=== PATIENT | female | born 1940 | race Caucasian/White ===

== ENCOUNTER 2019-06-30 19:23 | Observation (INO) | payer MEDICAID, MEDICARE, SELFPAY ==
[~2019-06-30] VITALS: Ht 157.5 cm; Wt 61.2 kg
--- NOTE | 2019-06-30 19:31 | NUR ---
TINY ALS TO BED 10.
[2019-06-30 19:32] VITALS: BP 123/72
--- NOTE | 2019-06-30 19:47 | NUR ---
79 Y/F BIBA ALS FROM [facility] FOR C/O STERNAL NONRADIATING CHEST SHARP PAIN 7/10. PT C/O COUGH AND SOB. LUNGS CLEAR. S1S2 PRESENT. RR EVEN, BREATHING SLIGHTLY LABORED. VSS. PUSES 2+ LT EYE BLOOD FILLED X 2 DAY. PT REPORTS 10/10 PAIN. DENIES BLURRED VISION. -LOC, -N/V/D NEGATIVE FOR COVID SCREENING. PMHX: DEMENTIA, COPD, PARKINSONS RX: IN PT CHART ALLX: NKA
--- NOTE | 2019-06-30 20:11 | NUR ---
EKG PERFORMED AT BEDSIDE
--- NOTE | 2019-06-30 20:28 | NUR ---
ERMD BEDSIDE EVALUATING PT
--- NOTE | 2019-06-30 20:29 | NUR ---
DR. CAMPOS AT BEDSIDE.
--- NOTE | 2019-06-30 21:01 | NUR ---
FLU, RSV AND COVID SWAB COLLECTED. PT TOLERATED WELL. SPECIMENS GIVEN TO LINE CONSTRUCTION SUPERVISOR IN ER TO BE PROCESSED.
[2019-06-30 21:06] LABS: BASOPHILS # (AUTO) 0.1 K/uL (0.00-0.22); EOSINOPHILS # (AUTO) 0.2 K/uL (0-0.4); EOSINOPHILS % (AUTO) 4.3 % (0.0-4.0); HEMATOCRIT 35.1 % (36-48); HEMOGLOBIN 11.4 g/dL (12.0-16.0); LYMPHOCYTES # (AUTO) 1.2 K/uL (2.5-16.5); MEAN CORPUSCULAR HEMOGLOBIN 27 pg (27-31); MEAN CORPUSCULAR HGB CONC 33 g/dL (33-37); MEAN CORPUSCULAR VOLUME 81.7 fL (80-94); MONOCYTES # (AUTO) 0.4 K/uL (0.8-1.0); MONOCYTES % (AUTO) 7.9 % (1.7-9.3); NEUTROPHILS # (AUTO) 3.7 K/uL (1.8-7.7); NEUTROPHILS % (AUTO) 64.8 % (42.2-75.2); PLATELET COUNT (AUTO) 260 K/uL (140-450); RED CELL DISTRIBUTION WIDTH 17.2 % (11.6-13.7); WHITE BLOOD COUNT (AUTO) 5.6 K/uL (4.8-10.8)
--- NOTE | 2019-06-30 21:10 | NUR ---
RT AT BEDSIDE.
[2019-06-30 21:21] LABS: APPEARANCE,URINE CLEAR (CLEAR); BILIRUBIN,URINE NEGATIVE (NEGATIVE); BLOOD, URINE NEGATIVE (NEGATIVE); COLOR,URINE YELLOW (YELLOW); LEUKOCYTE ESTERASE ,URINE NEGATIVE (NEGATIVE); NITRITE, URINE NEGATIVE (NEGATIVE); PH,URINE 6.5 (5.0-9.0); UGLUCOSE NEGATIVE (NEGATIVE)
[2019-06-30 21:21] LABS: FIBRINOGEN 238 mg/dL (200-400); PROTHROMBIN TIME 11.6 secs (10.8-13.4)
[2019-06-30 21:26] LABS: C-REACTIVE PROTEIN QUANT 0.2 mg/dL (0.0-0.9)
[2019-06-30 21:34] LABS: LACTATE DEHYDROGENASE 141 U/L (81-234)
[2019-06-30 21:38] LABS: D-DIMER < 100 ng/ml (0-400)
[2019-06-30 21:43] LABS: RSV NEGATIVE (NEGATIVE)
[2019-06-30 21:46] LABS: ANION GAP 7.7 (8-16); CARBON DIOXIDE 32.4 mmol/L (21-32); CHLORIDE 110 mmol/L (98-107); GLUCOSE 120 mg/dL (74-106); POTASSIUM 4.1 mmol/L (3.5-5.1); SODIUM SERUM 146 mmol/L (136-145)
[2019-06-30 21:47] LABS: ALBUMIN 3.1 g/dL (3.4-5.0); ASPARTATE AMINOTRANSFERASE 12 U/L (15-37); CREATININE 1.2 mg/dL (0.6-1.3); TOTAL BILIRUBIN 0.3 mg/dL (0.0-1.0); UREA NITROGEN, BLOOD 25 mg/dL (7-18)
--- NOTE | 2019-06-30 21:55 | NUR ---
VSS, ALL NEEDS MET AT THIS TIME, WILL CONTINUE TO MONITOR.
--- NOTE | 2019-06-30 21:57 | NUR ---
SPOKE WITH DAUGHTER-- UPDATED ON PLAN OF CARE. ALL QUESTIONS ANSWERED.
[2019-06-30] MEDS ORDERED: POTA8TER12 PO (23:10)
[2019-06-30] MEDS ORDERED: RISP0.5T19 PO (23:10)
[2019-06-30] MEDS ORDERED: GABA300C PO (23:10)
[2019-06-30] MEDS ORDERED: FLUT1DSK4 IH (23:10)
[2019-06-30] MEDS ORDERED: MAGN241.1 PO (23:10)
[2019-06-30] MEDS ORDERED: OMEP20TC10 PO (23:10)
[2019-06-30] MEDS ORDERED: FURO-572 PO (23:10)
[2019-06-30] MEDS ORDERED: ERGO500028 PO (23:10)
[2019-06-30] MEDS ORDERED: ROPI3TAB PO (23:10)
[2019-06-30] MEDS ORDERED: RASA0.5T2 PO (23:10)
[2019-06-30] MEDS ORDERED: ONDANSETRON 4 MG/2 ML VIAL IM/IVP PRN (23:15)
[2019-06-30] MEDS ORDERED: DOCUSATE SODIUM 100 MG GELCAP PO PRN (23:15)
[2019-06-30] MEDS ORDERED: ACETAMINOPHEN 325 MG TAB PO PRN (23:15)
[2019-06-30] MEDS ORDERED: HYDROcodone/APAP 7.5/325 MG 1 TAB PO PRN (23:15)
[2019-06-30] MEDS: NACL 0.9% 1,000 ML IV SCH (23:45)
--- NOTE | 2019-06-30 23:45 | NUR ---
RECEIVED BEDSIDE REPORT FROM ED RN BOB, FOR PT'S CONTINUITY OF CARE. 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 EXPLAINED TO PT THE BELLMAN ROUTINE, ORIENTED PT TO THE HOSPITAL SURROUNDINGS, ENCOURAGED THE USE OF CALL LIGHT, PT NODDED IN UNDERSTANDING. SAFETY MEASURES IN PLACE, ISOLATION PRECAUTION FOR R/O COVID IN PLACE, AND CALL LIGHT IS WITHIN REACH. WILL MONITOR PT THROUGHOUT SHIFT.
--- NOTE | 2019-06-30 23:45 | NUR ---
Patient will be admitted to care of DR. SHIELDS. Admited to TELE. Will go to room 115. Belongings list completed. Report to TUNDE SHRESTHA.
[2019-07-01 00:04] VITALS: BP 142/80
[2019-07-01 00:35] LABS: FREE T4 (FREE THYROXINE) 0.95 ng/dL (0.76-1.46); PHOSPHORUS 3.7 mg/dL (2.5-4.9); THYROID STIMULATING HORMONE 2.43 uIU/mL (0.34-3.74)
[2019-07-01] MEDS ORDERED: APIX5TAB4 PO (00:43)
[2019-07-01 00:50] LABS: CHOL/HDL RATIO 4.8 (1-4.5)
[2019-07-01] MEDS ORDERED: ALBUTEROL SULFATE/IPRATROPIU 3 ML SOL IH PRN (01:10)
[2019-07-01] MEDS ORDERED: ALBUTEROL HFA MDI 90 MCG/ACTUATION 8 GM INH PRN ×2 (01:15→15:05)
--- NOTE | 2019-07-01 02:15 | NUR ---
PT GOT OUT OF BED, REORIENTED PT TO SURROUNDINGS, PT MADE COMFORTABLE. PT DENIED ANYTHING NEEDED AT THIS TIME. SAFETY MEASURES IN PLACE AND CALL LIGHT IS WITHIN REACH.
[2019-07-01 02:31] LABS: BARBITURATE, URINE NEGATIVE ng/ml (NEG <=200); BENZODIAZEPINE, URINE NEGATIVE ng/mL (NEG <=200); CANNABINOID, URINE NEGATIVE ng/mL (NEG <=50); COCAINE, URINE NEGATIVE ng/mL (NEG <=300); OPIATE, URINE NEGATIVE ng/mL (NEG <=2000); PHENCYCLIDINE SCREEN,URINE NEGATIVE ng/mL (NEG <=25)
[2019-07-01] MEDS ORDERED: MECLIZINE 25 MG TAB PO PRN (02:35)
[2019-07-01 04:00] VITALS: BP 145/79
--- NOTE | 2019-07-01 04:00 | NUR ---
VS CHECKED AND CHARTED. PT DENIES ANY PAIN OR DISCOMFORT. ASKED COLLEAGUE WHO SPEAKS BOLIVIAN TO ASK PT IF THERE ARE ANY OTHER CONCERNS, PT DENIES. CONTINUED TO REORIENT PT TO THE HOSPITAL SURROUNDINGS AND REORIENT TO PLACE AND TIME. PT VERBALIZED UNDERSTANDING. WILL CONTINUE TO MONITOR PT.
[2019-07-01] MEDS: GABAPENTIN 300 MG CAP PO SCH ×3 (05:21→21:13)
--- NOTE | 2019-07-01 05:21 | NUR ---
ADMINISTERED SCHEDULED MEDICATION ORDERED. PT TOLERATED IT WELL. PT TEACHING GIVEN, PT NODDED, DENIES ANY PAIN. WILL CONTINUE TO MONITOR PT.
--- NOTE | 2019-07-01 06:20 | NUR ---
PT LYING DOWN ASLEEP WITH NO SIGNS OF DISTRESS OR DISCOMFORT. SAFETY MEASURES IN PLACE AND CALL LIGHT IS WITHIN REACH. WILL ENDORSE PT TO AM SHIFT RN FOR PT'S CONTINUITY OF CARE.
--- NOTE | 2019-07-01 07:36 | NUR ---
RECEIVED BEDSIDE REPORT FROM BUMBOATER NURSE FOR CONTINUITY OF CARE. PT IS A&OX1, UZBEK SPEAKING. RESPIRATIONS ARE EVEN AND UNLABORED, BREATHING TO RA. RAC 20G IV IS PATENT AND INTACT, RUNNING PER ORDERS. REVIEWED POC WITH PT, PT UNABLE TO COMPREHEND. CARDIAC DIET. INCONTINENT. ON OBSERVATION. TELE MONITOR ATTACHED. FALL PRECAUTIONS IN PLACE. DROPLET PRECAUTIONS IN PLACE; R/O COVID. SAFETY MEASURES IN PLACE; CALL LIGHT WITHIN REACH, BED IN LOW POSITION. NO DISTRESS NOTED. WILL CONTINUE TO MONITOR.
[2019-07-01 08:00] VITALS: BP 154/99
--- NOTE | 2019-07-01 08:19 | NUR ---
RECEIVED BEDSIDE REPORT FROM TOUR AGENT NURSE FOR CONTINUITY OF CARE. PT IS A&OX1, SPAIRESPIRATIONS ARE EVEN AND UNLABORED, BREATHING TO RA. RAC 20G IV IS PATENT AND INTACT, RUNNING TKO. REVIEWED POC WITH PT. CCHO 60G DIET. TELE MONITOR ATTACHED. FALL PRECAUTIONS IN PLACE; BED ALARM ACTIVATED, SIGN POSTED. SAFETY MEASURES IN PLACE; CALL LIGHT WITHIN REACH, BED IN LOW POSITION. NO DISTRESS NOTED. WILL CONTINUE TO MONITOR. Addendum: 07/01/19 at 0826 by Lydia Crook RN *INCOMPLETE ENTRY* *TIME CORRECTION* 1160 *PT IS A&OX1, QATARI SPEAKING. RT AC 20G IV IS PATENT AND INTACT, RUNNING PER ORDERS. CARDIAC DIET. DROPLET PRECAUTIONS IN PLACE; R/O COVID. INCONTINENT.
[2019-07-01] MEDS: PANTOPRAZOLE 40 MG TABEC PO SCH (09:27)
--- NOTE | 2019-07-01 09:27 | NUR ---
SCHEDULED MEDICATIONS GIVEN. PT TOLERATED PO MEDS WELL. PORT STEWARD IS AT BEDSIDE CLEANING PT. NO ACUTE DISTRESS NOTED. SAFETY MEASURES IN PLACE. WILL CONTINUE TO MONITOR.
[2019-07-01] MEDS: risperiDONE 1 MG TAB PO SCH ×2 (09:35→21:14)
[2019-07-01] MEDS: FUROSEMIDE 20 MG TAB PO SCH (09:36)
[2019-07-01] MEDS: rOPINIRole 1 MG TAB PO SCH ×2 (09:37→21:14)
[2019-07-01] MEDS: APIXABAN 2.5 MG TAB PO SCH ×2 (09:41→21:39)
[2019-07-01] MEDS: NACL 0.9% 1,000 ML IV SCH (09:59)
[2019-07-01] MEDS ORDERED: DIPHENHYDRAMINE HCL/ZINC ACET 28 GM TUBE TP PRN (10:25)
[2019-07-01 12:00] VITALS: BP 149/86
--- NOTE | 2019-07-01 12:01 | NUR ---
PT ATTEMPTED TO GET OUT OF BED, PT ASSISTED BACK TO BED, WITH EXPLANATION PROVIDED ABOUT REMAINING IN BED FOR HER SAFETY.
--- NOTE | 2019-07-01 12:03 | NUR ---
SPOKE WITH PT'S DAUGHTER, DUANE, AND UPDATED HER ON PT'S STATUS. PT IS LYING IN IN BED, APPEARS CONFUSED. PT STATED THAT SHE SEES HER NIECE OUTSIDE THE WINDOW IN THE PARKING LOT, BUT THERE WAS NO ONE THERE. NO ACUTE DISTRESS NOTED. WILL CONTINUE TO MONITOR.
--- NOTE | 2019-07-01 14:22 | NUR ---
PT ATTEMPTED TO GET OUT OF BED, PT ASSISTED BACK TO BED. SCHEDULED PO MED GIVEN. WILL CONTINUE TO MONITOR.
[2019-07-01] MEDS ORDERED: risperiDONE 1 MG TAB PO SCH (15:02)
[2019-07-01] MEDS ORDERED: AZITHROMYCIN 250 MG TAB PO SCH (15:24)
[2019-07-01 16:00] VITALS: BP 159/89
--- NOTE | 2019-07-01 16:01 | NUR ---
PT REMOVED IV. WILL ATTEMPT IV INSERTION.
--- NOTE | 2019-07-01 16:09 | NUR ---
Attempted to reapply heart monitor, but pt angrily pushes staff's hands away when approached. Explained importance of heart monitor, redirected behavior with conversation, and provided reassurance. Pt confused, stating she is not sick. Continue to refuse to reapply the heart monitor. Dr. Fernandez notified.
[2019-07-01] MEDS: ASCORBIC ACID 500 MG TAB PO SCH (16:29)
[2019-07-01] MEDS: ZINC SULF 220 MG CAP PO SCH (16:35)
--- NOTE | 2019-07-01 16:45 | NUR ---
SCHEDULED MEDICATIONS GIVEN. NEW IV SITE ESTABLISHED; LAC 22G. IV ROCEPHIN HUNG, AND RUNNING PER ORDERS. PT SCRATCHING STOMACH AND GROIN, BENADRYL APPLIED. WILL CONTINUE TO MONITOR.
--- NOTE | 2019-07-01 19:10 | NUR ---
RECEIVED BEDSIDE REPORT FROM DAY SHIFT NURSE. PATIENT IS AWAKE. RESPIRATION EVEN UNLABORED ON ROOM AIR. NO DISTRESS NOTED. BILATERAL UPPER EXTREMITY SOFT WRIST RESTRAINT NOTED. SKIN IS WARM AND DRY. IV PATENT AND INTACT. PLAN OF CARE WAS DISCUSSED. ALL SAFETY MEASURES IN PLACE. BED IS AT LOW POSITION. CALL LIGHT WITHIN REACH AND VERBALIZES ITS USE. WILL CONTINUE TO MONITOR.
--- NOTE | 2019-07-01 19:17 | NUR ---
ENDORSED TO WELL BLOWER NURSE FOR CONTINUITY OF CARE. PT IS IN STABLE CONDITION. ATTEMPTED TO CALL CHEKO HUGHES AT: [phone] TO FOLLOW-UP ON PNA/FLU VACCINATION STATUS, BUT RECEIVED NO ANSWER.
[2019-07-01 20:00] VITALS: BP 133/81
--- NOTE | 2019-07-01 20:05 | NUR ---
INITIAL ASSESSMENT DONE. VITALS WERE TAKEN. PATIENT IV ACCIDENTALLY PULLED. NO ACTIVE BLEEDING NOTED. CANNULA TIP INTACT. WILL INSERT A NEW ONE.
--- NOTE | 2019-07-01 21:36 | NUR ---
ALL SCHEDULED MEDS WERE GIVEN PER ORDER. NO ASE NOTED. INSERTED NEW IV 22G LEFT FOREARM. TOLERATED WELL. WILL CONTINUE TO MONITOR.
--- NOTE | 2019-07-01 22:45 | NUR ---
CHECKED PATIENT. PATIENT SLEEPING RESPIRATION EVEN UNLABORED ON ROOM AIR. SATING 96%. WILL CONTINUE TO MONITOR.
[2019-07-02] VITALS: BP 140/83
--- NOTE | 2019-07-02 02:10 | NUR ---
CHECKED PATIENT. PATIENT SLEEPING RESPIRATION EVEN UNLABORED ON ROOM AIR. NO DISTRESS NOTED. WILL CONTINUE TO MONITOR.
[2019-07-02 04:00] VITALS: BP 135/70
--- NOTE | 2019-07-02 04:10 | NUR ---
VITALS WERE TAKEN. PATIENT IN STABLE CONDITION. NO DISTRESS NOTED. WILL CONTINUE TO MONITOR.
[2019-07-02] MEDS: GABAPENTIN 300 MG CAP PO SCH ×2 (05:12→13:08)
--- NOTE | 2019-07-02 05:30 | NUR ---
PATIENT REFUSED CT HEAD. EXPLAINED PURPOSED OF THE TEST X2. STILL REFUSED. WILL NOTIFY MD. WILL CONTINUE TO MONITOR.
--- NOTE | 2019-07-02 06:50 | NUR ---
1ST COVID TEST NEGATIVE. SWABBED PATIENT FOR 2ND TEST. AWAITING FOR RESULT
--- NOTE | 2019-07-02 07:16 | NUR ---
ENDORSED PATIENT TO DAY SHIFT NURSE FOR CONTINUITY OF CARE. PATIENT IN STABLE CONDITION.
--- NOTE | 2019-07-02 07:22 | NUR ---
RECEIVED BEDSIDE REPORT FROM NIGHTSHIFT NURSE. PT RESTING IN BED. ABLE TO MAKE NEEDS KNOWN. RESPIRATIONS EVEN AND UNLABORED WITH NO SOB OR RESPIRATORY DISTRESS. SKIN WARM AND DRY TO TOUCH. IV SITE IN LFA 22G IS CLEAN, DRY, AND INTACT. SAFETY MEASURES IN PLACE. WILL CONTINUE TO MONITOR
[2019-07-02 07:23] LABS: T4 (THYROXINE) 6.7 ug/dL (4.5-12.0)
[2019-07-02 08:00] VITALS: BP 133/84
[2019-07-02] MEDS ORDERED: ASPIRIN 81 MG TAB.CHEW PO SCH (09:00)
[2019-07-02] MEDS ORDERED: AZITHROMYCIN 250 MG TAB PO SCH (09:00)
[2019-07-02] MEDS: APIXABAN 2.5 MG TAB PO SCH (09:33)
[2019-07-02] MEDS: rOPINIRole 1 MG TAB PO SCH (09:35)
[2019-07-02] MEDS: PANTOPRAZOLE 40 MG TABEC PO SCH (09:36)
[2019-07-02] MEDS: FUROSEMIDE 20 MG TAB PO SCH (09:36)
[2019-07-02] MEDS: risperiDONE 1 MG TAB PO SCH (09:36)
[2019-07-02] MEDS: ZINC SULF 220 MG CAP PO SCH (09:37)
[2019-07-02] MEDS: ASCORBIC ACID 500 MG TAB PO SCH (09:37)
--- NOTE | 2019-07-02 09:42 | NUR ---
ADMINISTERED SCHED MED PRESCRIBED PER MD ORDER. MEDICATION EDUCATION PERFORMED. PT VERBALIZED UNDERSTANDING. SAFETY MEASURES IN PLACE. WILL CONTINUE TO MONITOR
[2019-07-02 09:57] LABS: BASOPHILS # (AUTO) 0.1 K/uL (0.00-0.22); BASOPHILS % (AUTO) 0.8 % (0.0-2.0); EOSINOPHILS # (AUTO) 0.2 K/uL (0-0.4); HEMATOCRIT 35.4 % (36-48); HEMOGLOBIN 11.5 g/dL (12.0-16.0); LYMPHOCYTES # (AUTO) 1.6 K/uL (2.5-16.5); LYMPHOCYTES % (AUTO) 26.1 % (20.5-51.1); MEAN CORPUSCULAR HEMOGLOBIN 27 pg (27-31); MEAN CORPUSCULAR HGB CONC 33 g/dL (33-37); MEAN CORPUSCULAR VOLUME 81.9 fL (80-94); MONOCYTES # (AUTO) 0.4 K/uL (0.8-1.0); MONOCYTES % (AUTO) 6.9 % (1.7-9.3); NEUTROPHILS % (AUTO) 63.2 % (42.2-75.2); PLATELET COUNT (AUTO) 255 K/uL (140-450); RED BLOOD CELL COUNT(AUTO) 4.32 MIL/uL (4.20-5.40); RED CELL DISTRIBUTION WIDTH 17.4 % (11.6-13.7); WHITE BLOOD COUNT (AUTO) 6.3 K/uL (4.8-10.8)
[2019-07-02] MEDS: NACL 0.9% 1,000 ML IV SCH (10:01)
--- NOTE | 2019-07-02 10:30 | NUR ---
PT DAUGHTER DUANE CALLED. GAVE DUANE UPDATES ON PATIENTS CONDITION AND DISCHARGE ORDER. DUANE VERBALIZED UNDERSTANDING. SAFETY MEASURES IN PLACE. WILL CONTINUE TO MONITOR
--- NOTE | 2019-07-02 11:05 | NUR ---
ASSISTED TRANSFERRING OF PATIENT TO CT AND CHEST X-RAY. PT TOLERATED WELL. RETURNED PT BACK TO ROOM. PT TOLERATED WELL. SAFETY MEASURES IN PLACE. WILL CONTINUE TO MONITOR
--- NOTE | 2019-07-02 11:33 | NUR ---
PATIENT HAS BEEN SCREENED AND CATEGORIZED MODERATE NUTRITION RISK. PATIENT WILL BE SEEN WITHIN 3-5 DAYS OF ADMISSION. 07/03/19 - 07/05/19 DIANE MARTÍNEZ MBA, RD
[2019-07-02 11:49] LABS: ANION GAP 15.1 (8-16); CARBON DIOXIDE 25.2 mmol/L (21-32); CHLORIDE 108 mmol/L (98-107); GLUCOSE 88 mg/dL (74-106); POTASSIUM 3.3 mmol/L (3.5-5.1); SODIUM SERUM 145 mmol/L (136-145); UREA NITROGEN, BLOOD 18 mg/dL (7-18)
[2019-07-02 11:55] LABS: ALBUMIN 2.9 g/dL (3.4-5.0); ASPARTATE AMINOTRANSFERASE 17 U/L (15-37); LACTATE DEHYDROGENASE 205 U/L (81-234); TOTAL BILIRUBIN 0.5 mg/dL (0.0-1.0)
[2019-07-02 12:00] VITALS: BP 122/66
--- NOTE | 2019-07-02 12:15 | NUR ---
DAUGHTER DUANE AND PT ARE AWARE OF DISCHARGE TODAY TO [facility]. PT WILL BE GOING AROUND 1630 AND WILL BE IN ROOM 114A. SAFETY MEASURES IN PLACE. WILL CONTINUE TO MONITOR
--- NOTE | 2019-07-02 13:08 | NUR ---
ADMINISTERED SCHED MED PRESCRIBED PER MD ORDER. MEDICATION EDUCATION PERFORMED. PT VERBALIZED UNDERSTANDING. SAFETY MEASURES IN PLACE. WILL CONTINUE TO MONITOR
--- NOTE | 2019-07-02 14:35 | NUR ---
ASSISTED RUN BOAT OPERATOR WITH CHANGING AND REPOSITIONING PT. PT TOLERATED WELL. SAFETY MEASURES IN PLACE. WILL CONTINUE TO MONITOR
[2019-07-02] MEDS ORDERED: POTASSIUM CHLORIDE 10 MEQ TABER PO SCH (15:30)
[2019-07-02 15:41] VITALS: BP 122/66
--- NOTE | 2019-07-02 15:45 | NUR ---
CALLED [facility] HUGHES AT [phone] AND GAVE REPORT TO AVERY LINDQUIST. LEXA VERIFIED INFORMATION AND READ BACK INFORMATION. SAFETY MEASURES IN PLACE. WILL CONTINUE TO MONITOR
--- NOTE | 2019-07-02 15:52 | NUR ---
ADMINISTERED SCHED MED PRESCRIBED PER MD ORDER. MEDICATION EDUCATION PERFORMED. PT VERBALIZED UNDERSTANDING. SAFETY MEASURES IN PLACE. WILL CONTINUE TO MONITOR
[2019-07-02 16:00] VITALS: BP 145/74
--- NOTE | 2019-07-02 16:30 | NUR ---
WENT OVER DISCHARGE INSTRUCTIONS WITH PT. PT TOLERATED WELL. PT RESTING IN BED. ABLE TO MAKE NEEDS KNOWN. RESPIRATIONS EVEN AND UNLABORED WITH NO SOB OR RESPIRATORY DISTRESS. SKIN WARM AND DRY TO TOUCH. PT UNABLE TO SIGN FOR HERSELF. REMOVED INTACT IV CANNULA, ID BAND, AND TELE MONITOR. PT CHANGED INTO ORANGE GOWN. GATHERED ALL OF THE PT'S BELONGINGS. REPORT ALREADY GIVEN TO LEXA AT [facility]. PT WILL BE GOING IN ROOM 114A. PT IS STABLE
== END 2019-07-02 16:30 ==
LOC: MED 19:23 → EEVIPCON 23:13 → MTU 23:13
PROVIDERS: ADMIT General Practice; ATTEND General Practice
DX: R07.89 Other chest pain (principal); Z20.828 Contact with and (suspected) exposure to other viral communicable diseases; E86.0 Dehydration; E87.0 Hyperosmolality and hypernatremia; R51 Headache; K21.9 Gastro-esophageal reflux disease without esophagitis; M79.7 Fibromyalgia; G20 Parkinson's disease; I10 Essential (primary) hypertension; J44.9 Chronic obstructive pulmonary disease, unspecified; E44.0 Moderate protein-calorie malnutrition; F32.9 Major depressive disorder, single episode, unspecified; F03.90 Unspecified dementia, unspecified severity, without behavioral disturbance, psychotic disturbance, mood disturbance, and anxiety; I25.10 Atherosclerotic heart disease of native coronary artery without angina pectoris; E11.9 Type 2 diabetes mellitus without complications; I25.2 Old myocardial infarction; Z86.73 Personal history of transient ischemic attack (TIA), and cerebral infarction without residual deficits; Z85.3 Personal history of malignant neoplasm of breast; Z90.11 Acquired absence of right breast and nipple; Z79.01 Long term (current) use of anticoagulants; Z79.899 Other long term (current) drug therapy
CPT/HCPCS: 36415; 36600; 70450; 71045; 80053; 80061; 80305; 81003; 82150; 82550; 82553; 82728; 82803; 83036; 83605; 83615; 83690; 83735; 83880; 84100; 84436; 84439; 84443; 84479; 84484; 85025; 85379; 85384; 85610; 85651; 85730; 86140; 87040; 87081; 87086; 87205; 87420; 87804; 93005; 94760; 96361; 96365; 99285; G0378; J0696; J7030; J7060; Q0092; U0003